=== PATIENT | male | born 1985 | race Caucasian/White ===

== ENCOUNTER 2017-06-22 13:50 | Emergency (ER) | payer BC ==
[~2017-06-22] VITALS: Ht 175.3 cm; Wt 158.8 kg
[2017-06-22 13:57] VITALS: BP 145/85
== END 2017-06-22 14:27 | disposition home or self-care (01) ==
LOC: ER 13:51
DX: K64.9 Unspecified hemorrhoids (principal); M32.9 Systemic lupus erythematosus, unspecified; F10.10 Alcohol abuse, uncomplicated
CPT/HCPCS: A4606; Z7610